=== PATIENT | male | born 1965 | race Caucasian/White ===

== ENCOUNTER → 2017-02-19 | Outpatient (CLI) | payer MEDICARE | LOC: RAD 09:03 | DX: K76.9 Liver disease, unspecified (principal) ==

== ENCOUNTER → 2017-05-12 | Outpatient (CLI) | payer MEDICARE ==
[2017-05-12 17:24] LABS: EOS # 0.1 (0.04-0.40); EOS % 1.2 % (0.0-4.0); HEMATOCRIT 50.8 % (42.0-52.0); HEMOGLOBIN 16.5 g/dL (13.5-18.0); LYMPH# 2.5 (1.50-4.00); MEAN CELL VOLUME 95 fl (78-100); MEAN CORPUSCULAR HEMOGLOBIN 31 pg (27-31); MEAN CORPUSCULAR HGB CONC 33 g/dL (33-37); MEAN PLATELET VOLUME 9.1 fl (7.4-10.4); MONO # 0.8 (0.20-0.80); NEU # 4.1 (1.40-6.50); PLATELET COUNT 191 K/mm3 (130-400); RED BLOOD COUNT 5.33 M/mm3 (4.20-5.60); RED CELL DISTRIBUTION WIDTH 14.3 % (11.5-14.5); WHITE BLOOD COUNT 7.5 K/mm3 (4.8-10.8)
[2017-05-12 18:22] LABS: ALBUMIN 4.7 g/dL (3.5-5.0); CALCIUM 9.5 mg/dL (8.4-10.2); POTASSIUM 4.2 mmol/L (3.6-5.0); TOTAL BILIRUBIN 0.4 mg/dL (0.2-1.3)
[2017-05-12 19:15] LABS: ERYTHROCYTE SEDIMENTATION RATE 2 mm/hr (0-20)
== END ==
LOC: LAB 17:03
PROVIDERS: Internal Medicine
DX: C32.1 Malignant neoplasm of supraglottis (principal); Z88.0 Allergy status to penicillin; Z88.2 Allergy status to sulfonamides; Z88.7 Allergy status to serum and vaccine; Z88.6 Allergy status to analgesic agent; Z88.1 Allergy status to other antibiotic agents; Z91.041 Radiographic dye allergy status; Z88.8 Allergy status to other drugs, medicaments and biological substances

== ENCOUNTER → 2017-10-14 | Outpatient (CLI) | payer MEDICARE ==
[2017-10-14 17:24] LABS: EOS # 0.1 (0.04-0.40); EOS % 0.9 % (0.0-4.0); HEMATOCRIT 52.3 % (42.0-52.0); HEMOGLOBIN 17.2 g/dL (13.5-18.0); LYMPH# 2.7 (1.50-4.00); MEAN CELL VOLUME 95 fl (78-100); MEAN CORPUSCULAR HEMOGLOBIN 31 pg (27-31); MEAN CORPUSCULAR HGB CONC 33 g/dL (33-37); MEAN PLATELET VOLUME 9.9 fl (7.4-10.4); NEU # 5.9 (1.40-6.50); PLATELET COUNT 202 K/mm3 (130-400); RED BLOOD COUNT 5.52 M/mm3 (4.20-5.60); WHITE BLOOD COUNT 9.7 K/mm3 (4.8-10.8)
[2017-10-14 17:28] LABS: ALBUMIN 4.9 g/dL (3.5-5.0); BUN/CREATININE RATIO 5.5 (6.0-26.0); CALCIUM 9.3 mg/dL (8.4-10.2); POTASSIUM 3.6 mmol/L (3.6-5.0); TOTAL BILIRUBIN 0.6 mg/dL (0.2-1.3); TOTAL PROTEIN 8.5 g/dL (6.3-8.2)
[2017-10-14 18:36] LABS: ERYTHROCYTE SEDIMENTATION RATE 3 mm/hr (0-20)
[2017-10-15 12:51] LABS: TESTOSTERONE 207 ng/dL (221-716)
== END ==
LOC: LAB 16:32
PROVIDERS: Internal Medicine
DX: Z12.5 Encounter for screening for malignant neoplasm of prostate (principal); K50.10 Crohn's disease of large intestine without complications; C32.1 Malignant neoplasm of supraglottis; E78.2 Mixed hyperlipidemia

== ENCOUNTER → 2017-12-09 | Outpatient (CLI) | payer MEDICARE ==
[~2017-12-09] VITALS: Ht 175.3 cm; Wt 84.1 kg
[~2017-12-09] MED LIST: CLONAZEPAM2 MG PO; CYCLOBENZAPRINE10 M1 PO; NORCO 10-325 T1 EACH PO
[2017-12-09 13:30] VITALS: BP 122/80
[2017-12-09 15:19] LABS: EOS # 0.1 (0.04-0.40); EOS % 0.7 % (0.0-4.0); HEMATOCRIT 47.7 % (42.0-52.0); HEMOGLOBIN 16.3 g/dL (13.5-18.0); LYMPH# 2.3 (1.50-4.00); MEAN CELL VOLUME 93 fl (78-100); MEAN CORPUSCULAR HEMOGLOBIN 32 pg (27-31); MEAN CORPUSCULAR HGB CONC 34 g/dL (33-37); MEAN PLATELET VOLUME 9.5 fl (7.4-10.4); MONO # 0.7 (0.20-0.80); PLATELET COUNT 174 K/mm3 (130-400); RED BLOOD COUNT 5.12 M/mm3 (4.20-5.60); RED CELL DISTRIBUTION WIDTH 13.7 % (11.5-14.5); WHITE BLOOD COUNT 9.1 K/mm3 (4.8-10.8)
[2017-12-09 16:05] LABS: ALBUMIN 4.3 g/dL (3.5-5.0); CALCIUM 9.2 mg/dL (8.4-10.2); POTASSIUM 3.5 mmol/L (3.6-5.0); TOTAL BILIRUBIN 0.5 mg/dL (0.2-1.3)
[2017-12-09 17:13] LABS: ERYTHROCYTE SEDIMENTATION RATE 2 mm/hr (0-20)
== END ==
LOC: AMSURD 14:53
PROVIDERS: Internal Medicine
DX: R55 Syncope and collapse (principal); R06.02 Shortness of breath; I10 Essential (primary) hypertension; C32.1 Malignant neoplasm of supraglottis; J43.1 Panlobular emphysema

== ENCOUNTER → 2018-01-20 | Outpatient (CLI) | payer MEDICARE ==
[2017-12-09 13:30] VITALS: BP 122/80
[~2018-01-20] MED LIST changes: +FIORICET 325 MG1 TAB PO; +METOPROLOL SUCC25 M1 PO; +PINWORM ME50 MG/1 ML PO; +PRILOSEC 20MG20 MG PO; +REGLAN10 M2 PO
== END ==
LOC: LAB 12:34
DX: R06.00 Dyspnea, unspecified (principal)

== ENCOUNTER 2018-01-21 18:28 | Emergency (ER) | payer MEDICARE ==
[~2018-01-21] VITALS: Ht 172.7 cm; Wt 88.6 kg
[~2018-01-21 18:28] MED LIST changes: -FIORICET 325 MG1 TAB PO; -METOPROLOL SUCC25 M1 PO; -PINWORM ME50 MG/1 ML PO; -PRILOSEC 20MG20 MG PO; -REGLAN10 M2 PO
[2018-01-21 18:35] VITALS: BP 153/92
[2018-01-21] MEDS ORDERED: METOPROLOL SUCC25 M1 PO (18:59)
[2018-01-21] MEDS ORDERED: REGLAN10 M2 PO (19:00)
[2018-01-21] MEDS ORDERED: FIORICET 325 MG1 TAB PO (19:00)
[2018-01-21] MEDS ORDERED: PRILOSEC 20MG20 MG PO (19:01)
[2018-01-21 19:10] LABS: EOS # 0.1 (0.04-0.40); EOS % 0.9 % (0.0-4.0); HEMOGLOBIN 16.5 g/dL (13.5-18.0); MEAN CELL VOLUME 94 fl (78-100); MEAN CORPUSCULAR HEMOGLOBIN 32 pg (27-31); MEAN CORPUSCULAR HGB CONC 34 g/dL (33-37); MEAN PLATELET VOLUME 9.3 fl (7.4-10.4); MONO # 0.9 (0.20-0.80); NEU # 4.5 (1.40-6.50); PLATELET COUNT 183 K/mm3 (130-400); RED BLOOD COUNT 5.12 M/mm3 (4.20-5.60); RED CELL DISTRIBUTION WIDTH 14.3 % (11.5-14.5); WHITE BLOOD COUNT 8.5 K/mm3 (4.8-10.8)
[2018-01-21 19:20] LABS: ALBUMIN 4.9 g/dL (3.5-5.0); CALCIUM 9.7 mg/dL (8.4-10.2); POTASSIUM 3.8 mmol/L (3.6-5.0); TOTAL BILIRUBIN 0.9 mg/dL (0.2-1.3); TOTAL PROTEIN 7.8 g/dL (6.3-8.2)
[2018-01-21] MEDS ORDERED: PINWORM ME50 MG/1 ML PO (19:52)
[2018-01-21 20:19] LABS: ERYTHROCYTE SEDIMENTATION RATE 1 mm/hr (0-20)
== END 2018-01-21 20:00 | disposition home or self-care (01) ==
LOC: ED 18:28
PROVIDERS: Nurse Practitioner
DX: B80 Enterobiasis (principal); I10 Essential (primary) hypertension; F17.210 Nicotine dependence, cigarettes, uncomplicated; Z79.899 Other long term (current) drug therapy

== ENCOUNTER → 2018-03-17 | Outpatient (CLI) | payer MEDICARE ==
[~2018-03-17] MED LIST changes: +FIORICET 325 MG1 TAB PO; +METOPROLOL SUCC25 M1 PO; +PINWORM ME50 MG/1 ML PO; +PRILOSEC 20MG20 MG PO; +REGLAN10 M2 PO
== END ==
LOC: LAB 15:00
DX: K52.9 Noninfective gastroenteritis and colitis, unspecified (principal); K50.90 Crohn's disease, unspecified, without complications

== ENCOUNTER → 2018-07-02 | Outpatient (CLI) | payer MEDICARE ==
[2018-07-02 15:56] LABS: EOS % 0.5 % (0.0-4.0); HEMOGLOBIN 15.6 g/dL (13.5-18.0); LYMPH# 2.2 (1.50-4.00); MEAN CELL VOLUME 96 fl (78-100); MEAN CORPUSCULAR HEMOGLOBIN 32 pg (27-31); MEAN CORPUSCULAR HGB CONC 33 g/dL (33-37); MONO # 0.5 (0.20-0.80); NEU # 3.6 (1.40-6.50); PLATELET COUNT 158 K/mm3 (130-400); RED BLOOD COUNT 4.91 M/mm3 (4.20-5.60); RED CELL DISTRIBUTION WIDTH 13.4 % (11.5-14.5); WHITE BLOOD COUNT 6.3 K/mm3 (4.8-10.8)
[2018-07-02 16:35] LABS: ALBUMIN 4.5 g/dL (3.5-5.0); CALCIUM 9.5 mg/dL (8.4-10.2); POTASSIUM 3.6 mmol/L (3.6-5.0); TOTAL BILIRUBIN 0.5 mg/dL (0.2-1.3); TOTAL PROTEIN 7.2 g/dL (6.3-8.2)
== END ==
LOC: RAD 15:25
PROVIDERS: Internal Medicine
DX: C32.1 Malignant neoplasm of supraglottis (principal); K11.8 Other diseases of salivary glands; K50.10 Crohn's disease of large intestine without complications
CPT/HCPCS: J1200; Q9967

== ENCOUNTER 2019-03-16 18:23 | Emergency (ER) | payer MEDICARE ==
[~2019-03-16] VITALS: Ht 172.7 cm; Wt 88.6 kg
[2019-03-16 18:47] VITALS: BP 111/62
== END 2019-03-16 21:20 | disposition left against medical advice (07) ==
LOC: ED 18:23
DX: Z48.00 Encounter for change or removal of nonsurgical wound dressing (principal)

== ENCOUNTER → 2019-06-04 | Outpatient (CLI) | payer MEDICARE ==
[2019-06-04 16:19] LABS: EOS # 0.1 (0.04-0.40); EOS % 1.6 % (0.0-4.0); HEMATOCRIT 44.7 % (42.0-52.0); HEMOGLOBIN 14.5 g/dL (13.5-18.0); LYMPH# 2.1 (1.50-4.00); MEAN CELL VOLUME 99 fl (78-100); MEAN CORPUSCULAR HEMOGLOBIN 32 pg (27-31); MEAN CORPUSCULAR HGB CONC 32 g/dL (33-37); MEAN PLATELET VOLUME 9.1 fl (7.4-10.4); MONO # 0.5 (0.20-0.80); NEU # 3.7 (1.40-6.50); PLATELET COUNT 177 K/mm3 (130-400); RED BLOOD COUNT 4.51 M/mm3 (4.20-5.60); RED CELL DISTRIBUTION WIDTH 14.2 % (11.5-14.5); WHITE BLOOD COUNT 6.4 K/mm3 (4.8-10.8)
[2019-06-04 16:39] LABS: ALBUMIN 4.5 g/dL (3.5-5.0); POTASSIUM 4.3 mmol/L (3.5-5.1)
[2019-06-04 16:40] LABS: CALCIUM 8.8 mg/dL (8.3-10.5)
[2019-06-04 16:41] LABS: TOTAL PROTEIN 6.8 g/dL (6.4-8.3)
[2019-06-04 16:43] LABS: TOTAL BILIRUBIN 0.2 mg/dL (0.2-1.2)
== END ==
LOC: LAB 15:42
PROVIDERS: Internal Medicine
DX: C32.1 Malignant neoplasm of supraglottis (principal); J43.1 Panlobular emphysema; D37.030 Neoplasm of uncertain behavior of the parotid salivary glands; Z98.890 Other specified postprocedural states